=== PATIENT | male | born 1985 | race Caucasian/White ===

== ENCOUNTER 2020-09-14 10:50 | Emergency (ER) | payer OTHER ==
[2020-09-14] MEDS ORDERED: KETOROLAC TROMETHAMINE 60 MG/2 ML SDV IM ONE (11:38)
--- NOTE | 2020-09-14 11:47 | ER Document Report ---
ED General - General Chief Complaint: Ankle Injury Stated Complaint: FALL/RIGHT ANKLE INJURY Time Seen by Provider: 09/14/20 11:27 - HPI Notes: Chief complaint: Fall from ladder with injury to right ankle. 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 He came down with all of his weight on his right ankle and complains of pain in right ankle with associated swelling and inability to bear weight. He denies any other injuries. He specifically denies any loss of consciousness or head or neck pain. Is not having any shortness of breath. Patient presently rates his right ankle pain at a 6/10 intensity. - Related Data Allergies/Adverse Reactions: No Known Allergies Allergy (Unverified 09/14/20 11:06) Past Medical History - General Information source: Patient - Social History Smoking Status: Current Every Day Smoker Chew tobacco use (# tins/day): No Frequency of alcohol use: None Drug Abuse: None Lives with: Family Family History: Reviewed & Not Pertinent Patient has homicidal ideation: No - Medical History Medical History: Negative Psychiatric Medical History: Reports: Hx Depression Past Surgical History: Reports: None Review of Systems - Review of Systems Notes: Constitutional: Negative for fever. HENT: Negative for sore throat. Eyes: Negative for visual changes. Cardiovascular: Negative for chest pain. Respiratory: Negative for shortness of breath. Gastrointestinal: Negative for abdominal pain, vomiting or diarrhea. Genitourinary: Negative for dysuria. Musculoskeletal: As per HPI. Skin: Negative for rash. Neurological: Negative for headaches, weakness or numbness. 10 point ROS negative except as marked above and in HPI. Physical Exam - Vital signs Vitals: Pulse Ox 100 09/14/20 10:52 - Notes Notes: GENERAL: Well-developed well-nourished male approximately stated age appearing in moderate discomfort. SKIN: Good turgor no rashes. HEAD: Normocephalic atraumatic. EYES: PERRLA. EOMI. Conjunctivae and sclerae clear. EARS: CANALS AND TMS CLEAR. NOSE: CLEAR. MOUTH: Moist mucosa. Good dentition. No stridor or edema. No drooling. NECK: Supple. No masses or thyromegaly. No adenopathy. Carotids 2+ without bruits. No JVD. BACK: Symmetrical without tenderness. CHEST: Respirations unlabored. Breath sounds clear and symmetrical. HEART: Regular rhythm. No murmur gallop or rub. ABDOMEN: Soft nontender without masses, organomegaly or rebound. Bowel sounds normally active. No bruits. GENITALIA: Deferred. EXTREMITIES: Soft tissue swelling over medial and lateral malleolus of right ankle with no step-off and no crepitus. There is no visible ecchymosis. Distal sensation is intact and is moving toes without difficulty. No discontinuity or tenderness on palpation over the Achilles tendon and his Cruz test is normal. No calf tenderness. Cap refill less than 1.5 seconds. Dorsalis pedis and posterior tibial pulses 3+ and symmetrical. NEUROLOGICAL: GCS 15. Alert and oriented x3. Normal gait. Fluent speech. Cranial nerves II through XII intact. Sensorimotor and cerebellar normal. Normal tone. PSYCHIATRIC: Appropriate affect. Course - Re-evaluation Re-evalutation: 09/14/20 11:54 Previous healthy 34-year-old male fell from a ladder injuring right ankle. No loss of consciousness or complaints other than pain and swelling of right ankle. He was transported here via EMS with a splint in place and no other intervention was provided by them. His x-ray here shows no fracture or dislocation. He has a lot of soft tissue swelling and findings are consistent with sprain/contusion secondary to fall. He is placed in ankle stirrup with ice and elevation and is given crutches. Have given an injection of Toradol here. I will send him out with 3-day work note and advised him to continue use of splint crutches ice and elevation and follow-up with orthopedics. Findings, clinical impression and plan of treatment have been discussed with patient/family. Understanding of current findings and recommendations has been acknowledged by them and there is agreement regarding disposition and follow-up. - Vital Signs Vital signs: Temp Pulse Resp BP Pulse Ox 98.0 F 125/93 H 97 09/14/20 11:07 09/14/20 11:01 09/14/20 11:01 - Diagnostic Test Radiology reviewed: Image reviewed, Reports reviewed Radiology results interpreted by me: 09/14/20 11:54 Ankle X-Ray 09/14/20 00:00 IMPRESSION: NEGATIVE STUDY OF THE RIGHT ANKLE. NO RADIOGRAPHIC EVIDENCE OF ACUTE INJURY. Procedures - Immobilization Right Ankle Time completed: 11:55 Pre-Proc Neuro Vasc Exam: Normal Immobilizer type: Ankle stirrup, Crutches Performed by: PCT Post-Proc Neuro Vasc Exam: Normal Discharge - Discharge Clinical Impression: Fall Sprain of right ankle Qualifiers: Encounter type: initial encounter Involved ligament of ankle: unspecified ligament Qualified Code(s): S93.401A - Sprain of unspecified ligament of right ankle, initial encounter Condition: Stable Disposition: HOME, SELF-CARE Instructions: Ankle Stirrup Splint ([facility]), Use of Crutches ([facility]), Ice & Elevation ([facility]) Additional Instructions: Return here as needed for new or worsening symptoms. Take prescribed medication as needed for discomfort. Follow-up with referral orthopedist within the next 1 week. Prescriptions: Tramadol HCl [Ultram 50 mg Tablet] 50 mg PO Q6H 3 Days #12 tablet Forms: Return to Work Referrals: TEE SEPAR DO [ACTIVE STAFF] - Follow up as needed
--- NOTE | 2020-09-14 11:48 | RADIOLOGY REPORT (SQ) ---
EXAM DESCRIPTION: ANKLE RIGHT COMPLETE IMAGES COMPLETED DATE/TIME: 09/14/2020 10:35 am REASON FOR STUDY: deformity COMPARISON: None. NUMBER OF VIEWS: Three views. TECHNIQUE: AP, lateral, and oblique radiographic images acquired of the right ankle. LIMITATIONS: None. FINDINGS: MINERALIZATION: Normal. BONES: No acute fracture or dislocation. No worrisome bone lesions. JOINTS: No effusions. SOFT TISSUES: No soft tissue swelling. No foreign body. OTHER: No other significant finding. IMPRESSION: NEGATIVE STUDY OF THE RIGHT ANKLE. NO RADIOGRAPHIC EVIDENCE OF ACUTE INJURY. TECHNICAL DOCUMENTATION: JOB ID: [id number] [employer]- All Rights Reserved Reading location - IP/workstation name: [email or web address]
[2020-09-14 13:52] LABS: URINE AMPHETAMINES SCREEN NEGATIVE; URINE BARBITURATES SCREEN NEGATIVE; URINE BENZODIAZEPINES SCREEN NEGATIVE; URINE COCAINE SCREEN NEGATIVE; URINE MARIJUANA (THC) SCREEN NEGATIVE; URINE METHADONE SCREEN NEGATIVE; URINE PHENCYCLIDINE SCREEN NEGATIVE
[2020-09-14 14:21] VITALS: BP 127/83
== END 2020-09-14 14:21 | disposition home or self-care (01) ==
LOC: ER 10:50
DX: S93.401A Sprain of unspecified ligament of right ankle, initial encounter (principal); W11.XXXA Fall on and from ladder, initial encounter; Y93.H3 Activity, building and construction; Y99.0 Civilian activity done for income or pay; F17.200 Nicotine dependence, unspecified, uncomplicated
CPT/HCPCS: 99284; 96372; 80307; 73610; 29515; J1885